=== PATIENT | female | born 2000 | race Caucasian/White ===

== ENCOUNTER 2020-10-07 06:39 | Inpatient (IN) | payer MEDICAID ==
[2020-10-07] MEDS ORDERED: Misoprostol 50 MCG (1/2 of 100 MCG) Tab VAG ONE (08:00)
[2020-10-07] MEDS ORDERED: Sodium Chloride 0.9% 10 ML Syringe FLUSH PRN (08:01)
[2020-10-07] MEDS ORDERED: Ondansetron 4 MG/2 ML SDV IV PRN (08:01)
[2020-10-07] MEDS ORDERED: Lactated Ringers 1,000 ML IV ONE (08:01)
[2020-10-07] MEDS ORDERED: Naloxone 0.4 MG/ML SDV IVPUSH PRN (08:01)
[2020-10-07] MEDS ORDERED: ePHEDrine 50 MG/ML SDV IVPUSH PRN ×2 (08:01)
[2020-10-07] MEDS ORDERED: diphenhydrAMINE 50 MG/ML SDV IVPUSH PRN ×2 (08:01)
[2020-10-07] MEDS ORDERED: Acetaminophen 325 MG Tab PO PRN (08:01)
[2020-10-07] MEDS ORDERED: Ropivacaine 200 MG in Premix Bag 1 BAG EPIDUR SCH (08:15)
--- NOTE | 2020-10-07 08:52 | PCM.LDHP ---
L&D History of Present Illness - General Date of Service: 10/07/20 Admit Problem/Dx: Patient Status Order with Admit Dx/Problem 10/07/20 08:01 Patient Status [ADT] Routine Admission Diagnosis/Problem Admission Diagnosis/Problem - Related Data Allergies/Adverse Reactions: Allergies Allergy/AdvReac Type Severity Reaction Status Date / Time No Known Allergies Allergy Verified 10/07/20 07:59 Home Medications: Home Meds 93/Iron/Folate 9/Dha [[place] Dha Softgel] 1 tab PO DAILY 07/23/20 [History] Heparin Sodium 10,000 units SUBCUT BID 09/25/20 [History] Past Medical History HEENT History: Reports: None [employer]CH[employer]IST History: Reports: Hematologic History: Reports: Other (See Below) Other Hematologic History: protein def, factor V - Infectious Disease History Infectious Disease History: Reports: Chicken Pox, Influenza - Past Surgical History HEENT Surgical History: Reports: Tonsillectomy Social & Family History - Family History Family Medical History: No Pertinent Family History - Tobacco Use Tobacco Use Status *Q: Never Tobacco User Second Hand Smoke Exposure: No - Caffeine Use Caffeine Use: Reports: Coffee - Recreational Drug Use Recreational Drug Use: No H&P Review of Systems - Review of Systems: Review Of Systems: See Below General: Reports: No Symptoms HEENT: Reports: No Symptoms Pulmonary: Reports: No Symptoms Cardiovascular: Reports: No Symptoms Gastrointestinal: Reports: No Symptoms Genitourinary: Reports: No Symptoms Musculoskeletal: Reports: No Symptoms Skin: Reports: No Symptoms Psychiatric: Reports: No Symptoms Neurological: Reports: No Symptoms Hematologic/Lymphatic: Reports: No Symptoms Immunologic: Reports: No Symptoms L&D Exam - Exam Exam: See Below - Vital Signs Vital Signs: Last Vital Signs Temp 36.3 C 10/07/20 08:44 Pulse 105 H 10/07/20 08:44 Resp 16 10/07/20 08:44 BP 123/63 10/07/20 08:44 Pulse Ox 98 10/07/20 08:44 Weight: 63.957 kg - OB Specific Contraction Intensity: Mild Movement: Active Heart Tones: Present Heart Rate (FHR) Variability: Moderate (6-25 bmp) Presentation: Vertex - Olivo Score Olivo Score Cervix Position: Midposition Olivo Score Consistency: Soft Olivo Score Effacement: 51-70% Olivo Score Dilation: 1-2 cm Olivo Score 's Station: -1 ,0 Olivo Score Total: 8 - Exam General: Alert, Oriented, Cooperative HEENT: PERRLA, Conjunctiva Clear, EACs Clear, EOMI, Hearing Intact, Mucosa Moist & [place], Nares Patent, Normal Nasal Septum, Posterior Pharynx Clear, TMs Clear Neck: Supple, Trachea Midline Lungs: Clear to Auscultation, Normal Respiratory Effort Cardiovascular: Regular Rate, Regular Rhythm GI/Abdominal Exam: Normal Bowel Sounds, Soft, Non-Tender, No Organomegaly, No Distention, No Abnormal Bruit, No Mass, Pelvis Stable Rectal Exam: Normal Exam, Normal Rectal Tone Genitourinary: Normal external exam, Normal bimanual exam, Normal speculum exam Back Exam: Normal Inspection, Full Range of Motion Extremities: Normal Inspection, Normal Range of Motion, Non-Tender, No Pedal Edema, Normal Capillary Refill Skin: Warm, Dry, Intact Neurological: Cranial Nerves Intact, Reflexes Equal Bilateral Psychiatric: Alert, Normal Affect, Normal Mood, Anxious - Patient Data Lab Results Last 24 hrs: Laboratory Results - last 24 hr 10/07/20 10/07/20 10/07/20 Range/Units 06:45 06:45 07:02 WBC 8.0 (4.5-11.0) K/uL RBC 4.70 (3.30-5.50) M/uL Hgb 11.2 L (12.0-15.0) g/dL Hct 36.3 (36.0-48.0) % MCV 77 L (80-98) fL MCH 24 L (27-31) pg MCHC 31 L (32-36) % Plt Count 272 (150-400) K/uL Urine Color Yellow (YELLOW) Urine Appearance Clear (CLEAR) Urine pH 7.0 (5.0-8.0) Ur Specific [place] 1.010 (1.008-1.030) Urine Protein Negative (NEGATIVE) mg/dL Urine Glucose (UA) Negative (NEGATIVE) mg/dL Urine Ketones Negative (NEGATIVE) mg/dL Urine Occult Blood Negative (NEGATIVE) Urine Nitrite Negative (NEGATIVE) Urine Bilirubin Negative (NEGATIVE) Urine Urobilinogen 0.2 (0.2-1.0) EU/dL Ur Leukocyte Esterase Negative (NEGATIVE) Urine RBC Not seen (0-5) Urine WBC Not seen (0-5) Ur Epithelial Cells Rare Amorphous Sediment Rare Urine Bacteria Not seen Urine Mucus Not seen Urine Opiates Screen Negative (NEGATIVE) Ur Oxycodone Screen Negative (NEGATIVE) Urine Methadone Screen Negative (NEGATIVE) Ur Propoxyphene Screen Negative (NEGATIVE) Ur Barbiturates Screen Negative (NEGATIVE) Ur Tricyclics Screen Negative (NEGATIVE) Ur Phencyclidine Scrn Negative (NEGATIVE) Ur Amphetamine Screen Negative (NEGATIVE) U Methamphetamines Scrn Negative (NEGATIVE) Urine MDMA Screen Negative (NEGATIVE) U Benzodiazepines Scrn Negative (NEGATIVE) U Cocaine Metab Screen Negative (NEGATIVE) U Marijuana (THC) Screen Negative (NEGATIVE) SARS CoV-2 RNA Rapid EDGARDO 10/07/20 Range/Units 07:22 WBC (4.5-11.0) K/uL RBC (3.30-5.50) M/uL Hgb (12.0-15.0) g/dL Hct (36.0-48.0) % MCV (80-98) fL MCH (27-31) pg MCHC (32-36) % Plt Count (150-400) K/uL Urine Color (YELLOW) Urine Appearance (CLEAR) Urine pH (5.0-8.0) Ur Specific [place] (1.008-1.030) Urine Protein (NEGATIVE) mg/dL Urine Glucose (UA) (NEGATIVE) mg/dL Urine Ketones (NEGATIVE) mg/dL Urine Occult Blood (NEGATIVE) Urine Nitrite (NEGATIVE) Urine Bilirubin (NEGATIVE) Urine Urobilinogen (0.2-1.0) EU/dL Ur Leukocyte Esterase (NEGATIVE) Urine RBC (0-5) Urine WBC (0-5) Ur Epithelial Cells Amorphous Sediment Urine Bacteria Urine Mucus Urine Opiates Screen (NEGATIVE) Ur Oxycodone Screen (NEGATIVE) Urine Methadone Screen (NEGATIVE) Ur Propoxyphene Screen (NEGATIVE) Ur Barbiturates Screen (NEGATIVE) Ur Tricyclics Screen (NEGATIVE) Ur Phencyclidine Scrn (NEGATIVE) Ur Amphetamine Screen (NEGATIVE) U Methamphetamines Scrn (NEGATIVE) Urine MDMA Screen (NEGATIVE) U Benzodiazepines Scrn (NEGATIVE) U Cocaine Metab Screen (NEGATIVE) U Marijuana (THC) Screen (NEGATIVE) SARS CoV-2 RNA Rapid EDGARDO Negative Result Diagrams: 10/07/20 07:02 - Problem List (1) High-risk in third trimester SNOMED Code(s): 07533683, 88323637 ICD Code: O09.93 - SUPERVISION OF HIGH RISK , UNSP, THIRD TRIMESTER Status: Acute Current Visit: Yes (2) Protein S deficiency affecting SNOMED Code(s): 783232042 ICD Code: O99.119 - OTH DIS OF BLD/BLD-FORM ORG/IMMUN MECHNSM COMP PREG,UNSP TRI; D68.59 - OTHER PRIMARY THROMBOPHILIA Status: Acute Current Visit: Yes (3) Factor 5 Leiden mutation, heterozygous SNOMED Code(s): 438736585 ICD Code: D68.51 - ACTIVATED PROTEIN C RESISTANCE Status: Acute Current Visit: Yes (4) Encounter for induction of labor SNOMED Code(s): 999044659 ICD Code: Z34.90 - ENCNTR FOR SUPRVSN OF NORMAL , UNSP, UNSP TRIMESTER Status: Acute Current Visit: Yes Problem List Initiated/Reviewed/Updated: Yes Orders Last 24hrs: Active Orders 24 hr Category Date Time Status Patient Status [ADT] Routine ADT 10/07/20 08:01 Ordered Communication Order [RC] ASDIRECTED Care 10/07/20 08:01 Ordered Communication Order [RC] ASDIRECTED Care 10/07/20 08:01 Ordered Communication Order [RC] ROUTINE Care 10/07/20 08:01 Ordered Communication Order [RC] ROUTINE Care 10/07/20 08:01 Ordered Communication Order [RC] ROUTINE Care 10/07/20 08:01 Ordered Heart Tones [RC] PER UNIT ROUTINE Care 10/07/20 08:01 Ordered Non Stress Test [RC] Click to Edit Care 10/07/20 08:01 Ordered Insert Urinary Catheter [OM.PC] ASDIRECTED Care 10/07/20 08:15 Ordered Local Anesthetic Infusion Pump [RC] ASDIRECTED Care 10/07/20 08:01 Ordered Notify Provider Vital Signs [RC] PRN Care 10/07/20 08:01 Ordered Notify Provider [RC] PRN Care 10/07/20 08:01 Ordered Oxygen Therapy [RC] ASDIRECTED Care 10/07/20 08:01 Ordered PCEA Epidural [RC] ASDIRECTED Care 10/07/20 08:01 Ordered PCEA Epidural [RC] ASDIRECTED Care 10/07/20 08:01 Ordered PCEA Epidural [RC] ASDIRECTED Care 10/07/20 08:02 Ordered Peripheral IV Care [RC] . DIRECTED Care 10/07/20 08:02 Ordered Pulse Oximetry [RC] ASDIRECTED Care 10/07/20 08:01 Ordered Urinary Catheter Assessment [RC] ASDIRECTED Care 10/07/20 08:02 Ordered Vital Signs [RC] PER UNIT ROUTINE Care 10/07/20 08:01 Ordered Vital Signs [RC] PER UNIT ROUTINE Care 10/07/20 08:01 Ordered BPP wo NST [US] Routine Exams 10/07/20 07:07 Ordered TYPE AND SCREEN [BBK] Routine Lab 10/07/20 07:02 Received Acetaminophen [TylenoL] Med 10/07/20 08:01 Ordered 650 mg PO Q4H PRN Lactated Ringers [Ringers, Lactated] 1,000 ml Med 10/07/20 08:01 Ordered IV .BOLUS Naloxone [Narcan] Med 10/07/20 08:01 Ordered 0.1 mg IVPUSH ASDIRECTED PRN Ondansetron [Zofran] Med 10/07/20 08:01 Ordered 4 mg IV Q4H PRN Ropivacaine [Naropin 0.2%] 200 mg Med 10/07/20 08:15 Ordered Premix Bag 1 bag EPIDUR ASDIRECTED Sodium Chloride 0.9% [Saline Flush] Med 10/07/20 08:01 Ordered 10 ml FLUSH ASDIRECTED PRN diphenhydrAMINE [Benadryl] Med 10/07/20 08:01 Ordered 25 mg IVPUSH Q6H PRN diphenhydrAMINE [Benadryl] Med 10/07/20 08:01 Ordered 50 mg IVPUSH Q6H PRN ePHEDrine [ePHEDrine sulfate] Med 10/07/20 08:01 Ordered 10 mg IVPUSH ASDIRECTED PRN ePHEDrine [ePHEDrine sulfate] Med 10/07/20 08:01 Ordered 10 mg IVPUSH ASDIRECTED PRN Epidural Catheter Management [OM.PC] Routine Oth 10/07/20 08:01 Ordered Epidural Catheter Management [OM.PC] Urgent Oth 10/07/20 08:01 Ordered Peripheral IV Insertion Pediatric [OM.PC] Routine Oth 10/07/20 08:01 Ordered Saline Lock Insert [OM.PC] Routine Oth 10/07/20 08:01 Ordered Resuscitation Status Routine Resus Stat 10/07/20 08:01 Ordered Medication Orders Acetaminophen (Tylenol) 650 mg PO Q4H PRN PRN Reason: Pain (Mild 1-3) and fever Diphenhydramine HCl (Benadryl) 25 mg IVPUSH Q6H PRN PRN Reason: Itching Diphenhydramine HCl (Benadryl) 50 mg IVPUSH Q6H PRN PRN Reason: Itching Ephedrine Sulfate (Ephedrine Sulfate) 10 mg IVPUSH ASDIRECTED PRN PRN Reason: Hypotension Ephedrine Sulfate (Ephedrine Sulfate) 10 mg IVPUSH ASDIRECTED PRN PRN Reason: Hypotension Lactated Ringer's (Ringers, Lactated) 1,000 mls @ 999 mls/hr IV .BOLUS ONE Stop: 10/07/20 09:01 Ropivacaine 200 mg/ Premix 100 mls @ 0 mls/hr EPIDUR ASDIRECTED ZAINAB Naloxone HCl (Narcan) 0.1 mg IVPUSH ASDIRECTED PRN PRN Reason: Oversedation Ondansetron HCl (Zofran) 4 mg IV Q4H PRN PRN Reason: Nausea/Vomiting Sodium Chloride (Saline Flush) 10 ml FLUSH ASDIRECTED PRN PRN Reason: Keep Vein Open Assessment/Plan Comment:: 10/07/2020 20 yo here at 39 3/7 weeks gestation for induction of labor. Patient is a high risk due to protein S deficiency and Factor V, has been ma intained with lovenox and then switched to heparin at 36 weeks gestation. BPP 8/8, NST reactive SVE-1-2/70/0 FHTs category one Cytotec placed vaginally Labs-A positive, Hep B neg, Hep C neg, HIV neg, RPR nonreactive, GBS negative, COVID negative, Rubella Immune, Hgb-11.2 Plan- Monitor for active labor Monitor FHTs Patient may be up ad cassandra Patient may tub or shower Place second IV due to bleeding risk Patient may eat regular diet till desires epidural Epidural for pain management Plan and anticipate a vaginal delivery
--- NOTE | 2020-10-07 09:45 | US ---
BPP wo NST INDICATION: induction COMPARISON: None FINDINGS: Single live IUP heart rate: 160 BPM. Biophysical profile score: 8/8. LEIDA: 16.9 cm. IMPRESSION: Normal biophysical profile score of 8/8.
[2020-10-07] MEDS ORDERED: Lactated Ringers 1,000 ML IV SCH (13:15)
--- NOTE | 2020-10-07 13:56 | PCM.PNLD ---
Labor Progress Note - VS & Meds Vital Signs: Last Vital Signs Temp 36.3 C 10/07/20 11:00 Pulse 110 H 10/07/20 11:00 Resp 16 10/07/20 11:00 BP 122/72 10/07/20 11:00 Pulse Ox 98 10/07/20 11:00 Active Medications: Current Medications Acetaminophen (Tylenol) 650 mg PO Q4H PRN PRN Reason: Pain (Mild 1-3) and fever Diphenhydramine HCl (Benadryl) 25 mg IVPUSH Q6H PRN PRN Reason: Itching Diphenhydramine HCl (Benadryl) 50 mg IVPUSH Q6H PRN PRN Reason: Itching Ephedrine Sulfate (Ephedrine Sulfate) 10 mg IVPUSH ASDIRECTED PRN PRN Reason: Hypotension Ephedrine Sulfate (Ephedrine Sulfate) 10 mg IVPUSH ASDIRECTED PRN PRN Reason: Hypotension Ropivacaine 200 mg/ Premix 100 mls @ 0 mls/hr EPIDUR ASDIRECTED ZAINAB Oxytocin/Sodium Chloride (Pitocin In Ns 20 Units/1,000 Ml) 20 unit in 1,000 mls @ 999 mls/hr IV TITRATE ZAINAB; Protocol Lactated Ringer's (Ringers, Lactated) 1,000 mls @ 100 mls/hr IV ASDIRECTED ZAINAB Last Admin: 10/07/20 13:46 Dose: 100 mls/hr Documented by: Naloxone HCl (Narcan) 0.1 mg IVPUSH ASDIRECTED PRN PRN Reason: Oversedation Ondansetron HCl (Zofran) 4 mg IV Q4H PRN PRN Reason: Nausea/Vomiting Sodium Chloride (Saline Flush) 10 ml FLUSH ASDIRECTED PRN PRN Reason: Keep Vein Open Discontinued Medications Lactated Ringer's (Ringers, Lactated) 1,000 mls @ 999 mls/hr IV .BOLUS ONE Stop: 10/07/20 09:01 Last Admin: 10/07/20 13:05 Dose: 999 mls/hr Documented by: Misoprostol (Cytotec) 50 mcg VAG ONETIME ONE Stop: 10/07/20 08:01 Last Admin: 10/07/20 08:40 Dose: 50 mcg Documented by: - Uterine Contractions Uterine Monitoring Mode: External [place] Contraction Frequency (min): 1.5-2 Contraction Duration (sec): 40-110 Contraction Intensity: Mild to Moderate Uterine Resting Tone: Soft - Monitoring Monitor Mode: External Ultrasound Heart Rate (FHR) Variability: Moderate (6-25 bmp) - Vaginal Exam Dilation (cm): 3-4 Effacement (Percent): 85-90 Station: 0 Cervical Position: Anterior Sterile Vaginal Exam Performed By: Maryjane Sawyer - Labor Progress (Free Text) Labor Progress: Patient progressing nicely FHTs category one Contractions regular and slightly uncomfortable Patient does not desire any medication yet SVE-3-4/0 Plan- Continue to monitor labor Continue to monitor FHTs Patient can get in tub per her request Up ad cassandra Epidural when patient desires Plan and anticipate a vaginal delivery
[2020-10-07] MEDS ORDERED: Ropivacaine 100 ML ONE (14:10)
--- NOTE | 2020-10-07 14:14 | PCM.PNLD ---
Labor Progress Note - VS & Meds Vital Signs: Last Vital Signs Temp 36.3 C 10/07/20 11:00 Pulse 110 H 10/07/20 11:00 Resp 16 10/07/20 13:47 BP 122/72 10/07/20 11:00 Pulse Ox 98 10/07/20 11:00 Active Medications: Current Medications Acetaminophen (Tylenol) 650 mg PO Q4H PRN PRN Reason: Pain (Mild 1-3) and fever Diphenhydramine HCl (Benadryl) 25 mg IVPUSH Q6H PRN PRN Reason: Itching Diphenhydramine HCl (Benadryl) 50 mg IVPUSH Q6H PRN PRN Reason: Itching Ephedrine Sulfate (Ephedrine Sulfate) 10 mg IVPUSH ASDIRECTED PRN PRN Reason: Hypotension Ephedrine Sulfate (Ephedrine Sulfate) 10 mg IVPUSH ASDIRECTED PRN PRN Reason: Hypotension Ropivacaine 200 mg/ Premix 100 mls @ 0 mls/hr EPIDUR ASDIRECTED [facility] Last Admin: 10/07/20 14:12 Dose: 12 mls/hr Documented by: Oxytocin/Sodium Chloride (Pitocin In Ns 20 Units/1,000 Ml) 20 unit in 1,000 mls @ 999 mls/hr IV TITRATE [facility]; Protocol Lactated Ringer's (Ringers, Lactated) 1,000 mls @ 100 mls/hr IV ASDIRECTED [facility] Last Admin: 10/07/20 13:46 Dose: 100 mls/hr Documented by: Naloxone HCl (Narcan) 0.1 mg IVPUSH ASDIRECTED PRN PRN Reason: Oversedation Ondansetron HCl (Zofran) 4 mg IV Q4H PRN PRN Reason: Nausea/Vomiting Sodium Chloride (Saline Flush) 10 ml FLUSH ASDIRECTED PRN PRN Reason: Keep Vein Open Discontinued Medications Lactated Ringer's (Ringers, Lactated) 1,000 mls @ 999 mls/hr IV .BOLUS ONE Stop: 10/07/20 09:01 Last Admin: 10/07/20 13:05 Dose: 999 mls/hr Documented by: Ropivacaine (Naropin 0.2%) Confirm Administered Dose 100 mls @ as directed .ROUTE .STK-MED ONE Stop: 10/07/20 14:11 Misoprostol (Cytotec) 50 mcg VAG ONETIME ONE Stop: 10/07/20 08:01 Last Admin: 10/07/20 08:40 Dose: 50 mcg Documented by: - Uterine Contractions Uterine Monitoring Mode: External [place] Contraction Frequency (min): 1.5-2 Contraction Duration (sec): 40-110 Contraction Intensity: Mild to Moderate Uterine Resting Tone: Soft - Monitoring Monitor Mode: External Ultrasound Heart Rate (FHR) Variability: Moderate (6-25 bmp) - Vaginal Exam Dilation (cm): 8 Effacement (Percent): 95 Station: 0 Cervical Position: Anterior Sterile Vaginal Exam Performed By: Maryjane Sawyer - Labor Progress (Free Text) Labor Progress: Patient sitting up after epidural completed, SROM occured. Patient now 8/95/0 and feeling lots of pressure Starting to get comfortable from epidural FHTs category one Contractions regular at bedside and supportive Plan- Continue to monitor labor Continue to monitor FHTs Plan and anticipate a vaginal delivery
[2020-10-07] MEDS ORDERED: Misoprostol 200 MCG Tab ONE (14:38)
[2020-10-07] MEDS ORDERED: Methylergonovine 0.2 MG/1 ML Amp ONE (14:38)
[2020-10-07] MEDS ORDERED: Carboprost Tromethamine 250 MCG/1 ML Amp ONE (14:38)
[2020-10-07] MEDS ORDERED: Witch Hazel Medicated Pads 100/Jar TOP ONE (17:02)
[2020-10-07] MEDS ORDERED: Acetaminophen 325 MG Tab, 50 Tab Bulk Bottle PO PRN (17:02)
[2020-10-07] MEDS ORDERED: Benzocaine 20% Top Spray 56 GM Bottle TOP ONE (17:02)
[2020-10-07] MEDS ORDERED: Lanolin 100% Cream 40 GM Tube TOP ONE (17:02)
--- NOTE | 2020-10-07 17:40 | PCM.DEL ---
L & D Note - General Info Date of Service: 10/07/20 Mother's Due Date: 10/11/20 - Delivery Note Cervical Ripening Method: Misoprostil Delivery Outcome: Livebirth Delivery Method: Spontaneous Vaginal Delivery-Single Delivery Mode: Spontaneous Presentation: Left Occiput Posterior (LOP) Nuchal Cord: Present, Reduced Anesthesia Type: Epidural Amniotic Fluid Description: Clear Episiotomy Type: None Laceration: None Placenta: Intact, Spontaneous Cord: 3 Vessels Estimated Blood Loss: 200 Resuscitation Needed: No : Bulb Syringe, Stimulated, Warmed, Calder Used Score 1 min: 9 Score 5 min: 9 Second Stage Interventions: Reports: Second Nurse Assessed Progress of Descent, Second Nurse Reviewed Contraction Pattern, Second Nurse Reviewed Heart Tones, Encouragement Given, Pushing Effectively Delivery Comments (Free Text/Narrative):: 10/07/2020 20 yo at 39 3/7 weeks gestation delivered a viable female at 1452 on 10/07/2020 normal vaginal delivery in LOP position over an intact perineum. Infant did have a nuchal cord times one that was reduced. Infant was then delivered and placed on prewarmed blanket on mother's abdomen, delayed cord clamping was done for approximately 90 seconds, then cord was double clamped an cut by father of . was crying vigorously, pinking in color. was dried, stimulated, and bulb suctioned while on mother's abdomen. After cord was cut infant was brought more skin to skin with mother. APGARS- 9/9, weight-6lbs 11oz, length-19 inches, Placenta then can slower, but intact. EBL-200ml, Three vessel cord. No lacerations noted of labia, vagina, perineum, rectum or cervix. now skin to skin and both mother and stable in labor and delivery room. Stages of labor- [id number] - General Info Date of Service: 10/07/20 Functional Status: Reports: Pain Controlled - Review of Systems General: Reports: No Symptoms HEENT: Reports: No Symptoms Pulmonary: Reports: No Symptoms Cardiovascular: Reports: No Symptoms Gastrointestinal: Reports: No Symptoms Genitourinary: Reports: No Symptoms Musculoskeletal: Reports: No Symptoms Skin: Reports: No Symptoms Neurological: Reports: No Symptoms Psychiatric: Reports: No Symptoms - Patient Data Vitals - Most Recent: Last Vital Signs Temp 36.3 C 10/07/20 16:15 Pulse 83 10/07/20 15:00 Resp 18 10/07/20 16:15 BP 112/81 10/07/20 16:15 Pulse Ox 100 10/07/20 16:15 Weight - Most Recent: 63.957 kg I&O - Last 24 Hours: Intake & Output 10/07/20 10/07/20 10/07/20 06:59 14:59 22:59 Intake Total 1000 Balance 1000 Lab Results Last 24 Hours: Laboratory Results - last 24 hr 10/07/20 10/07/20 10/07/20 Range/Units 06:45 06:45 07:02 WBC 8.0 (4.5-11.0) K/uL RBC 4.70 (3.30-5.50) M/uL Hgb 11.2 L (12.0-15.0) g/dL Hct 36.3 (36.0-48.0) % MCV 77 L (80-98) fL MCH 24 L (27-31) pg MCHC 31 L (32-36) % Plt Count 272 (150-400) K/uL Urine Color Yellow (YELLOW) Urine Appearance Clear (CLEAR) Urine pH 7.0 (5.0-8.0) Ur Specific Dilliner 1.010 (1.008-1.030) Urine Protein Negative (NEGATIVE) mg/dL Urine Glucose (UA) Negative (NEGATIVE) mg/dL Urine Ketones Negative (NEGATIVE) mg/dL Urine Occult Blood Negative (NEGATIVE) Urine Nitrite Negative (NEGATIVE) Urine Bilirubin Negative (NEGATIVE) Urine Urobilinogen 0.2 (0.2-1.0) EU/dL Ur Leukocyte Esterase Negative (NEGATIVE) Urine RBC Not seen (0-5) Urine WBC Not seen (0-5) Ur Epithelial Cells Rare Amorphous Sediment Rare Urine Bacteria Not seen Urine Mucus Not seen Urine Opiates Screen Negative (NEGATIVE) Ur Oxycodone Screen Negative (NEGATIVE) Urine Methadone Screen Negative (NEGATIVE) Ur Propoxyphene Screen Negative (NEGATIVE) Ur Barbiturates Screen Negative (NEGATIVE) Ur Tricyclics Screen Negative (NEGATIVE) Ur Phencyclidine Scrn Negative (NEGATIVE) Ur Amphetamine Screen Negative (NEGATIVE) U Methamphetamines Scrn Negative (NEGATIVE) Urine MDMA Screen Negative (NEGATIVE) U Benzodiazepines Scrn Negative (NEGATIVE) U Cocaine Metab Screen Negative (NEGATIVE) U Marijuana (THC) Screen Negative (NEGATIVE) SARS CoV-2 RNA Rapid EDGARDO Blood Type Gel Antibody Screen 10/07/20 10/07/20 Range/Units 07:02 07:22 WBC (4.5-11.0) K/uL RBC (3.30-5.50) M/uL Hgb (12.0-15.0) g/dL Hct (36.0-48.0) % MCV (80-98) fL MCH (27-31) pg MCHC (32-36) % Plt Count (150-400) K/uL Urine Color (YELLOW) Urine Appearance (CLEAR) Urine pH (5.0-8.0) Ur Specific Dilliner (1.008-1.030) Urine Protein (NEGATIVE) mg/dL Urine Glucose (UA) (NEGATIVE) mg/dL Urine Ketones (NEGATIVE) mg/dL Urine Occult Blood (NEGATIVE) Urine Nitrite (NEGATIVE) Urine Bilirubin (NEGATIVE) Urine Urobilinogen (0.2-1.0) EU/dL Ur Leukocyte Esterase (NEGATIVE) Urine RBC (0-5) Urine WBC (0-5) Ur Epithelial Cells Amorphous Sediment Urine Bacteria Urine Mucus Urine Opiates Screen (NEGATIVE) Ur Oxycodone Screen (NEGATIVE) Urine Methadone Screen (NEGATIVE) Ur Propoxyphene Screen (NEGATIVE) Ur Barbiturates Screen (NEGATIVE) Ur Tricyclics Screen (NEGATIVE) Ur Phencyclidine Scrn (NEGATIVE) Ur Amphetamine Screen (NEGATIVE) U Methamphetamines Scrn (NEGATIVE) Urine MDMA Screen (NEGATIVE) U Benzodiazepines Scrn (NEGATIVE) U Cocaine Metab Screen (NEGATIVE) U Marijuana (THC) Screen (NEGATIVE) SARS CoV-2 RNA Rapid EDGARDO Negative Blood Type A POSITIVE Gel Antibody Screen Negative Med Orders - Current: Current Medications Acetaminophen (Tylenol) 650 mg PO Q4H PRN PRN Reason: Pain (Mild 1-3) and fever Acetaminophen (Tylenol Bulk Bottle) 325 - 650 mg PO Q4H PRN PRN Reason: Pain Acetaminophen/Codeine Phosphate (Tylenol With Codeine No.3 300mg/30mg) 1 tab PO Q4H PRN PRN Reason: Pain Diphenhydramine HCl (Benadryl) 25 mg IVPUSH Q6H PRN PRN Reason: Itching Diphenhydramine HCl (Benadryl) 50 mg IVPUSH Q6H PRN PRN Reason: Itching Enoxaparin Sodium (Lovenox) 40 mg SUBCUT DAILY [facility] Ephedrine Sulfate (Ephedrine Sulfate) 10 mg IVPUSH ASDIRECTED PRN PRN Reason: Hypotension Last Admin: 10/07/20 14:16 Dose: 10 mg Documented by: Ephedrine Sulfate (Ephedrine Sulfate) 10 mg IVPUSH ASDIRECTED PRN PRN Reason: Hypotension Ropivacaine 200 mg/ Premix 100 mls @ 0 mls/hr EPIDUR ASDIRECTED [facility] Last Admin: 10/07/20 14:12 Dose: 12 mls/hr Documented by: Oxytocin/Sodium Chloride (Pitocin In Ns 20 Units/1,000 Ml) 20 unit in 1,000 mls @ 999 mls/hr IV TITRATE [facility]; Protocol Lactated Ringer's (Ringers, Lactated) 1,000 mls @ 100 mls/hr IV ASDIRECTED [facility] Last Admin: 10/07/20 13:46 Dose: 100 mls/hr Documented by: Naloxone HCl (Narcan) 0.1 mg IVPUSH ASDIRECTED PRN PRN Reason: Oversedation Ondansetron HCl (Zofran) 4 mg IV Q4H PRN PRN Reason: Nausea/Vomiting Sertraline HCl (Zoloft) 50 mg PO BEDTIME [facility] Sodium Chloride (Saline Flush) 10 ml FLUSH ASDIRECTED PRN PRN Reason: Keep Vein Open Discontinued Medications Benzocaine (Tvcs-L-Puezvak 20% Dante) 0 gm TOP ONETIME ONE Stop: 10/07/20 17:03 Last Admin: 10/07/20 17:21 Dose: 1 applic Documented by: Carboprost Tromethamine (Hemabate Ds) Confirm Administered Dose 250 mcg .ROUTE .STK-MED ONE Stop: 10/07/20 14:39 Last Admin: 10/07/20 17:18 Dose: Not Given Documented by: Emollient Ointment (Lansinoh Hpa) 1 gm TOP ONETIME ONE Stop: 10/07/20 17:03 Last Admin: 10/07/20 17:22 Dose: 1 applic Documented by: Lactated Ringer's (Ringers, Lactated) 1,000 mls @ 999 mls/hr IV .BOLUS ONE Stop: 10/07/20 09:01 Last Admin: 10/07/20 13:05 Dose: 999 mls/hr Documented by: Ropivacaine (Naropin 0.2%) Confirm Administered Dose 100 mls @ as directed .ROUTE .STK-MED ONE Stop: 10/07/20 14:11 Methylergonovine Maleate (Methergine) Confirm Administered Dose 0.2 mg .ROUTE .STK-MED ONE Stop: 10/07/20 14:39 Last Admin: 10/07/20 17:19 Dose: Not Given Documented by: Misoprostol (Cytotec) 50 mcg VAG ONETIME ONE Stop: 10/07/20 08:01 Last Admin: 10/07/20 08:40 Dose: 50 mcg Documented by: Misoprostol (Cytotec) Confirm Administered Dose 800 mcg .ROUTE .STK-MED ONE Stop: 10/07/20 14:39 Last Admin: 10/07/20 17:18 Dose: Not Given Documented by: Jasmeet Penn ([facility]) 1 pad TOP ONETIME ONE Stop: 10/07/20 17:03 Last Admin: 10/07/20 17:21 Dose: 1 pad Documented by: - Exam General: Alert, Oriented, Cooperative HEENT: Pupils Equal, Pupils Reactive, EOMI, Mucous Membr. Moist/Friend Neck: Supple Lungs: Clear to Auscultation, Normal Respiratory Effort Cardiovascular: Regular Rate, Regular Rhythm GI/Abdominal Exam: Normal Bowel Sounds, Soft, Non-Tender, No Organomegaly, No Distention, No Abnormal Bruit, No Mass, Pelvis Stable (Female) Exam: Normal External Exam, Normal Speculum Exam, Normal Bimanual Exam, Enlarged Uterus, Vaginal Bleeding Back Exam: Normal Inspection, Full Range of Motion Extremities: Normal Inspection, Normal Range of Motion, Non-Tender, No Pedal Edema, Normal Capillary Refill Skin: Warm, Dry, Intact Neurological: No New Focal Deficit Psy/Mental Status: Alert, Normal Affect, Normal Mood - Problem List & Annotations (1) High-risk in third trimester SNOMED Code(s): 32621872, 77602666 Code(s): O09.93 - SUPERVISION OF HIGH RISK , UNSP, THIRD TRIMESTER Status: Acute Current Visit: Yes (2) Protein S deficiency affecting SNOMED Code(s): 415113938 Code(s): O99.119 - OTH DIS OF BLD/BLD-FORM ORG/IMMUN MECHNSM COMP PREG,UNSP TRI; D68.59 - OTHER PRIMARY THROMBOPHILIA Status: Acute Current Visit: Yes (3) Factor 5 Leiden mutation, heterozygous SNOMED Code(s): 210277749 Code(s): D68.51 - ACTIVATED PROTEIN C RESISTANCE Status: Acute Current Visit: Yes (4) Encounter for induction of labor SNOMED Code(s): 889893345 Code(s): Z34.90 - ENCNTR FOR SUPRVSN OF NORMAL , UNSP, UNSP TRIMESTER Status: Acute Current Visit: Yes (5) Vaginal delivery SNOMED Code(s): 644158184 Code(s): O80 - ENCOUNTER FOR FULL-TERM UNCOMPLICATED DELIVERY Status: Acute Current Visit: Yes (6) (infant) SNOMED Code(s): 847095272 Code(s): Z78.9 - OTHER SPECIFIED HEALTH STATUS Status: Acute Current Visit: Yes (7) On anticoagulant therapy SNOMED Code(s): 438134958, 505538843 Code(s): Z79.01 - 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 OF ANTICOAGULANTS Status: Acute Current Visit: Yes - Problem List Review Problem List Initiated/Reviewed/Updated: Yes - My Orders Last 24 Hours: My Active Orders 10/07/20 07:02 PATIENT RETYPE [BBK] Routine TYPE AND SCREEN [BBK] Routine 10/07/20 08:01 Patient Status [ADT] Routine Communication Order [RC] ASDIRECTED Communication Order [RC] ASDIRECTED Communication Order [RC] ROUTINE Communication Order [RC] ROUTINE Communication Order [RC] ROUTINE Heart Tones [RC] PER UNIT ROUTINE Local Anesthetic Infusion Pump [RC] ASDIRECTED Notify Provider Vital Signs [RC] PRN Notify Provider [RC] PRN Oxygen Therapy [RC] ASDIRECTED PCEA Epidural [RC] ASDIRECTED Pulse Oximetry [RC] ASDIRECTED Vital Signs [RC] PER UNIT ROUTINE Acetaminophen [TylenoL] 650 mg PO Q4H PRN Naloxone [Narcan] 0.1 mg IVPUSH ASDIRECTED PRN Ondansetron [Zofran] 4 mg IV Q4H PRN Sodium Chloride 0.9% [Saline Flush] 10 ml FLUSH ASDIRECTED PRN diphenhydrAMINE [Benadryl] 25 mg IVPUSH Q6H PRN diphenhydrAMINE [Benadryl] 50 mg IVPUSH Q6H PRN ePHEDrine [ePHEDrine sulfate] 10 mg IVPUSH ASDIRECTED PRN ePHEDrine [ePHEDrine sulfate] 10 mg IVPUSH ASDIRECTED PRN Epidural Catheter Management [OM.PC] Routine Epidural Catheter Management [OM.PC] Urgent Peripheral IV Insertion Pediatric [OM.PC] Routine Saline Lock Insert [OM.PC] Routine Resuscitation Status Routine 10/07/20 08:02 PCEA Epidural [RC] ASDIRECTED Peripheral IV Care [RC] . DIRECTED Urinary Catheter Assessment [RC] ASDIRECTED 10/07/20 08:15 Insert Urinary Catheter [OM.PC] ASDIRECTED Ropivacaine [Naropin 0.2%] 200 mg Premix Bag 1 bag EPIDUR ASDIRECTED 10/07/20 Lunch Regular Diet [DIET] 10/07/20 12:45 Oxytocin/Normal Saline [Pitocin in NS 20 Units/1,000 ML] 20 unit in 1,000 ml IV TITRATE 10/07/20 13:15 Lactated Ringers [Ringers, Lactated] 1,000 ml IV ASDIRECTED 10/07/20 17:02 Ambulate [RC] PER UNIT ROUTINE Communication Order [RC] ROUTINE Acetaminophen [Tylenol Bulk Bottle] 325 - 650 mg PO Q4H PRN Assess Lochia [WOMSER] Per Unit Routine Assess Uterine Involution [WOMSER] Per Unit Routine DVT/VTE Prophylaxis Reflex [OM.PC] Routine 10/07/20 17:07 Patient Status [ADT] Routine Vital Signs [RC] PFP Perineal Care [OM.PC] Per Unit Routine 10/07/20 17:08 VTE/DVT Education [RC] Click to Edit 10/07/20 17:25 Acetaminophen/Codeine [Tylenol with Codeine No.3 300MG/30MG] 1 tab PO Q4H PRN 10/07/20 21:00 Sertraline [Zoloft] 50 mg PO BEDTIME 10/08/20 06:00 CBC WITH AUTO DIFF [HEME] Routine 10/08/20 09:00 Enoxaparin [Lovenox] 40 mg SUBCUT DAILY - Assessment Assessment:: 10/07/2020 20 yo G2 now P2 without complications 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 Patient is a high risk due to protein S deficiency and Factor V, has been maintained with lovenox and then switched to heparin at 36 weeks gestation. BPP 8/8, NST reactive SVE-1-2/70/0 FHTs category one Cytotec placed vaginally Labs-A positive, Hep B neg, Hep C neg, HIV neg, RPR nonreactive, GBS negative, COVID negative, Rubella Immune, Hgb-11.2 Plan- Monitor for active labor Monitor FHTs Patient may be up ad cassandra Patient may tub or shower Place second IV due to bleeding risk Patient may eat regular diet till desires epidural Epidural for pain management Plan and anticipate a vaginal delivery Routine cares Encourage and support To restart lovenox tomorrow for six weeks To restart Zoloft at bedtime Patient desires a 24 hour discharge if stable
--- NOTE | 2020-10-07 19:25 | ANES ---
DATE OF SERVICE: 10/07/2020 INDICATIONS: Pham is a 20-year-old female patient who is requesting a labor epidural this afternoon. She came in for labor induction today, and at the bedside at approximately 1345, history and physical was done with the patient. The patient is on blood thinners for blood clotting disorder that she had been taking heparin for, but her last dose of heparin was at 5 o'clock yesterday afternoon, so no worries there. No allergies that she was aware of. Platelet count was above 200. Other than the clotting disorder, she has normal and normal health. Did have a labor epidural with her first one also. Risks and benefits, including spinal headache, risk for infection were reviewed with the patient. The patient verbalizes understanding and wishes to proceed with the labor epidural at this time. TECHNIQUE: The patient was sat at the edge of the bed. Betadine prep x3 to the lumbar region was done. Sterile drape was placed. 1% lidocaine skin wheal and deep was done. A 17-gauge Tuohy needle was inserted at approximately the L3-4 position. Loss of resistance was easily achieved. Negative paresthesia, negative heme, negative CSF were noted. Loss of resistance was approximately at 5 cm. Catheter was then placed through the Tuohy needle without difficulty. The Tuohy needle was taken out and catheter was pulled back to approximately 13 cm at the skin. Catheter was then secured at that time. I then proceeded to give the patient 5 mL test dose and patient was then laid in supine position with head of bed slightly elevated and left uterine displacement done. After several minutes, the patient showed no signs of local anesthetic toxicity or intravascular injection of local, so I then proceeded to give the patient 12 mL of 0.2% ropivacaine bolus via the epidural and started her on a 0.2% ropivacaine drip at 12 mL an hour. The patient tolerated the bolus without difficulty. Please refer to the nurse's notes for vital signs. Prior to leaving, the patient was stating that she was feeling some relief with each contraction and was able to talk through contractions. We will be available as needed for the patient. Yong Friedman CRNA /[id number]
[2020-10-07] MEDS ORDERED: Sertraline 50 MG Tab PO SCH (21:00)
[2020-10-08] MEDS: Acetaminophen/Codeine 300-30 MG Tab PO PRN ×3 (02:07→12:00)
--- NOTE | 2020-10-08 08:18 | PCM.PNPP ---
- General Info Date of Service: 10/08/20 Functional Status: Reports: Pain Controlled - Review of Systems General: Reports: No Symptoms HEENT: Reports: No Symptoms Pulmonary: Reports: No Symptoms Cardiovascular: Reports: No Symptoms Gastrointestinal: Reports: No Symptoms Genitourinary: Reports: No Symptoms Musculoskeletal: Reports: No Symptoms Skin: Reports: No Symptoms Neurological: Reports: No Symptoms Psychiatric: Reports: No Symptoms - General Info Date of Service: 10/08/20 - Patient Data Vital Signs - Most Recent: Last Vital Signs Temp 36.8 C 10/08/20 04:30 Pulse 55 L 10/08/20 04:30 Resp 18 10/08/20 04:30 BP 112/62 10/08/20 04:30 Pulse Ox 99 10/08/20 04:30 Weight - Most Recent: 63.957 kg Lab Results - Last 24 Hours: Laboratory Results - last 24 hr 10/07/20 10/08/20 Range/Units 07:02 05:30 WBC 11.1 H (4.5-11.0) K/uL RBC 4.76 (3.30-5.50) M/uL Hgb 11.6 L (12.0-15.0) g/dL Hct 36.3 (36.0-48.0) % MCV 76 L (80-98) fL MCH 24 L (27-31) pg MCHC 32 (32-36) % Plt Count 257 (150-400) K/uL Neut % (Auto) 77 H (36-66) % Lymph % (Auto) 16 L (24-44) % [place] % (Auto) 6 (2-6) % Eos % (Auto) 1 L (2-4) % Baso % (Auto) 0 (0-1) % Blood Type A POSITIVE Gel Antibody Screen Negative Med Orders - Current: Current Medications Acetaminophen (Tylenol) 650 mg PO Q4H PRN PRN Reason: Pain (Mild 1-3) and fever Acetaminophen (Tylenol Bulk Bottle) 325 - 650 mg PO Q4H PRN PRN Reason: Pain Last Admin: 10/07/20 17:43 Dose: 650 mg Documented by: Acetaminophen/Codeine Phosphate (Tylenol With Codeine No.3 300mg/30mg) 1 tab PO Q4H PRN PRN Reason: Pain Last Admin: 10/08/20 06:12 Dose: 1 tab Documented by: Diphenhydramine HCl (Benadryl) 25 mg IVPUSH Q6H PRN PRN Reason: Itching Diphenhydramine HCl (Benadryl) 50 mg IVPUSH Q6H PRN PRN Reason: Itching Enoxaparin Sodium (Lovenox) 40 mg SUBCUT DAILY [facility] Ephedrine Sulfate (Ephedrine Sulfate) 10 mg IVPUSH ASDIRECTED PRN PRN Reason: Hypotension Last Admin: 10/07/20 14:16 Dose: 10 mg Documented by: Ephedrine Sulfate (Ephedrine Sulfate) 10 mg IVPUSH ASDIRECTED PRN PRN Reason: Hypotension Ropivacaine 200 mg/ Premix 100 mls @ 0 mls/hr EPIDUR ASDIRECTED [facility] Last Admin: 10/07/20 14:12 Dose: 12 mls/hr Documented by: Oxytocin/Sodium Chloride (Pitocin In Ns 20 Units/1,000 Ml) 20 unit in 1,000 mls @ 999 mls/hr IV TITRATE [facility]; Protocol Lactated Ringer's (Ringers, Lactated) 1,000 mls @ 100 mls/hr IV ASDIRECTED [facility] Last Admin: 10/07/20 13:46 Dose: 100 mls/hr Documented by: Naloxone HCl (Narcan) 0.1 mg IVPUSH ASDIRECTED PRN PRN Reason: Oversedation Ondansetron HCl (Zofran) 4 mg IV Q4H PRN PRN Reason: Nausea/Vomiting Sertraline HCl (Zoloft) 50 mg PO BEDTIME [facility] Last Admin: 10/07/20 20:47 Dose: 50 mg Documented by: Sodium Chloride (Saline Flush) 10 ml FLUSH ASDIRECTED PRN PRN Reason: Keep Vein Open Discontinued Medications Benzocaine (Nntt-Q-Rtusxma 20% [place]) 0 gm TOP ONETIME ONE Stop: 10/07/20 17:03 Last Admin: 10/07/20 17:21 Dose: 1 applic Documented by: Carboprost Tromethamine (Hemabate Ds) Confirm Administered Dose 250 mcg .ROUTE .STK-MED ONE Stop: 10/07/20 14:39 Last Admin: 10/07/20 17:18 Dose: Not Given Documented by: Emollient Ointment (Lansinoh Hpa) 1 gm TOP ONETIME ONE Stop: 10/07/20 17:03 Last Admin: 10/07/20 17:22 Dose: 1 applic Documented by: Lactated Ringer's (Ringers, Lactated) 1,000 mls @ 999 mls/hr IV .BOLUS ONE Stop: 10/07/20 09:01 Last Admin: 10/07/20 13:05 Dose: 999 mls/hr Documented by: Ropivacaine (Naropin 0.2%) Confirm Administered Dose 100 mls @ as directed .ROUTE .STK-MED ONE Stop: 10/07/20 14:11 Methylergonovine Maleate (Methergine) Confirm Administered Dose 0.2 mg .ROUTE .STK-MED ONE Stop: 10/07/20 14:39 Last Admin: 10/07/20 17:19 Dose: Not Given Documented by: Misoprostol (Cytotec) 50 mcg VAG ONETIME ONE Stop: 10/07/20 08:01 Last Admin: 10/07/20 08:40 Dose: 50 mcg Documented by: Misoprostol (Cytotec) Confirm Administered Dose 800 mcg .ROUTE .STK-MED ONE Stop: 10/07/20 14:39 Last Admin: 10/07/20 17:18 Dose: Not Given Documented by: Jasmeet Penn ([facility]) 1 pad TOP ONETIME ONE Stop: 10/07/20 17:03 Last Admin: 10/07/20 17:21 Dose: 1 pad Documented by: - Interaction Infant Disposition, : [place] in Room with Family Interaction: Holding Infant Feeding: Breastfed ; Nursed Well Support Person: Significant Other - Recovery Exam Fundal Tone: Firm Fundal Level: 1 Fingerbreadths Below Umbilicus Fundal Placement: Midline Lochia Amount: Small Lochia Color: Rubra/Red Perineum Description: Intact, Minimal Bruising/Swelling Episiotomy/Laceration: None Bladder Status: Voiding Urinary Elimination: Voided - Exam General: Alert, Oriented, Cooperative HEENT: Pupils Equal, Pupils Reactive, EOMI, Mucous Membr. Moist/[place] Neck: Supple Lungs: Clear to Auscultation, Normal Respiratory Effort Cardiovascular: Regular Rate, Regular Rhythm GI/Abdominal Exam: Normal Bowel Sounds, Soft, Non-Tender, No Organomegaly, No Distention, No Abnormal Bruit, No Mass, Pelvis Stable Extremities: Normal Inspection, Normal Range of Motion, Non-Tender, No Pedal Edema, Normal Capillary Refill Skin: Warm, Dry, Intact Neurological: No New Focal Deficit Psy/Mental Status: Alert, Normal Affect, Normal Mood - Problem List & Annotations (1) High-risk in third trimester SNOMED Code(s): 36362143, 56330017 Code(s): O09.93 - SUPERVISION OF HIGH RISK , UNSP, THIRD TRIMESTER Status: Acute Current Visit: Yes (2) Protein S deficiency affecting SNOMED Code(s): 640554961 Code(s): O99.119 - OTH DIS OF BLD/BLD-FORM ORG/IMMUN MECHNSM COMP PREG,UNSP TRI; D68.59 - OTHER PRIMARY THROMBOPHILIA Status: Acute Current Visit: Yes (3) Factor 5 Leiden mutation, heterozygous SNOMED Code(s): 370481340 Code(s): D68.51 - ACTIVATED PROTEIN C RESISTANCE Status: Acute Current Visit: Yes (4) Encounter for induction of labor SNOMED Code(s): 217452008 Code(s): Z34.90 - ENCNTR FOR SUPRVSN OF NORMAL , UNSP, UNSP TRIMESTER Status: Acute Current Visit: Yes (5) Vaginal delivery SNOMED Code(s): 178004007 Code(s): O80 - ENCOUNTER FOR FULL-TERM UNCOMPLICATED DELIVERY Status: Acute Current Visit: Yes (6) (infant) SNOMED Code(s): 940324208 Code(s): Z78.9 - OTHER SPECIFIED HEALTH STATUS Status: Acute Current Visit: Yes (7) On anticoagulant therapy SNOMED Code(s): 957204620, 738430249 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(s): 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 Status: Acute Current Visit: Yes - Problem List Review Problem List Initiated/Reviewed/Updated: Yes - My Orders Last 24 Hours: My Active Orders 10/07/20 08:01 Patient Status [ADT] Routine Communication Order [RC] ASDIRECTED Communication Order [RC] ASDIRECTED Communication Order [RC] ROUTINE Communication Order [RC] ROUTINE Communication Order [RC] ROUTINE Heart Tones [RC] PER UNIT ROUTINE Local Anesthetic Infusion Pump [RC] ASDIRECTED Notify Provider Vital Signs [RC] PRN Notify Provider [RC] PRN PCEA Epidural [RC] ASDIRECTED Pulse Oximetry [RC] ASDIRECTED Vital Signs [RC] PER UNIT ROUTINE Acetaminophen [TylenoL] 650 mg PO Q4H PRN Naloxone [Narcan] 0.1 mg IVPUSH ASDIRECTED PRN Ondansetron [Zofran] 4 mg IV Q4H PRN Sodium Chloride 0.9% [Saline Flush] 10 ml FLUSH ASDIRECTED PRN diphenhydrAMINE [Benadryl] 25 mg IVPUSH Q6H PRN diphenhydrAMINE [Benadryl] 50 mg IVPUSH Q6H PRN ePHEDrine [ePHEDrine sulfate] 10 mg IVPUSH ASDIRECTED PRN ePHEDrine [ePHEDrine sulfate] 10 mg IVPUSH ASDIRECTED PRN Epidural Catheter Management [OM.PC] Routine Epidural Catheter Management [OM.PC] Urgent Peripheral IV Insertion Pediatric [OM.PC] Routine Saline Lock Insert [OM.PC] Routine Resuscitation Status Routine 10/07/20 08:02 PCEA Epidural [RC] ASDIRECTED Peripheral IV Care [RC] . DIRECTED 10/07/20 08:15 Insert Urinary Catheter [OM.PC] ASDIRECTED Ropivacaine [Naropin 0.2%] 200 mg Premix Bag 1 bag EPIDUR ASDIRECTED 10/07/20 Lunch Regular Diet [DIET] 10/07/20 12:45 Oxytocin/Normal Saline [Pitocin in NS 20 Units/1,000 ML] 20 unit in 1,000 ml IV TITRATE 10/07/20 13:15 Lactated Ringers [Ringers, Lactated] 1,000 ml IV ASDIRECTED 10/07/20 17:02 Ambulate [RC] PER UNIT ROUTINE Acetaminophen [Tylenol Bulk Bottle] 325 - 650 mg PO Q4H PRN Assess Lochia [WOMSER] Per Unit Routine Assess Uterine Involution [WOMSER] Per Unit Routine DVT/VTE Prophylaxis Reflex [OM.PC] Routine 10/07/20 17:07 Patient Status [ADT] Routine Perineal Care [OM.PC] Per Unit Routine 10/07/20 17:08 VTE/DVT Education [RC] Click to Edit 10/07/20 17:25 Acetaminophen/Codeine [Tylenol with Codeine No.3 300MG/30MG] 1 tab PO Q4H PRN 10/07/20 21:00 Sertraline [Zoloft] 50 mg PO BEDTIME 10/08/20 09:00 Enoxaparin [Lovenox] 40 mg SUBCUT DAILY - Assessment Assessment:: 10/07/2020 20 yo G2 now P2 without complications 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 Patient is a high risk due to protein S deficiency and Factor V, has been maintained with lovenox and then switched to heparin at 36 weeks gestation. BPP 8/8, NST reactive SVE-1-2/70/0 FHTs category one Cytotec placed vaginally Labs-A positive, Hep B neg, Hep C neg, HIV neg, RPR nonreactive, GBS negative, COVID negative, Rubella Immune, Hgb-11.2 Plan- Monitor for active labor Monitor FHTs Patient may be up ad cassandra Patient may tub or shower Place second IV due to bleeding risk Patient may eat regular diet till desires epidural Epidural for pain management Plan and anticipate a vaginal delivery Routine cares Encourage and support To restart lovenox tomorrow for six weeks To restart Zoloft at bedtime Patient desires a 24 hour discharge if stable Routine cares Encourage and support To restart lovenox today but would like to at night at home to do this for six weeks To restart Zoloft at bedtime Patient desires a 24 hour Patient to see provider in clinic in six weeks for care
[2020-10-08] MEDS ORDERED: Enoxaparin 40 MG/0.4 ML Syringe SUBCUT SCH (09:00)
== END 2020-10-08 15:48 | disposition home or self-care (01) | DRG 806 ==
LOC: JP.OB 06:39 → OBSVTOIN 14:52 → JP.MS 10-08 00:15
PROVIDERS: ADMIT Advanced Practice Midwife; ATTEND Advanced Practice Midwife
PROC: 10E0XZZ Delivery of Products of Conception, External Approach (ICD-10-PCS; principal; 2020-10-07)
PROC: 3E0P7VZ Introduction of Hormone into Female Reproductive, Via Natural or Artificial Opening (ICD-10-PCS; 2020-10-07)
PROC: 3E0R3BZ Introduction of Anesthetic Agent into Spinal Canal, Percutaneous Approach (ICD-10-PCS; 2020-10-07)
PROC: 00HU33Z Insertion of Infusion Device into Spinal Canal, Percutaneous Approach (ICD-10-PCS; 2020-10-07)
DX: O99.12 Other diseases of the blood and blood-forming organs and certain disorders involving the immune mechanism complicating childbirth (principal); D68.59 Other primary thrombophilia; Z37.0 Single live birth; D68.51 Activated protein C resistance; Z3A.39 39 weeks gestation of pregnancy; O69.81X0 Labor and delivery complicated by cord around neck, without compression, not applicable or unspecified; Z20.822 Contact with and (suspected) exposure to COVID-19
CPT/HCPCS: 36415; 59409; 76819; 76819-26; 80305-QW; 81001; 85025; 85027; 86850; 86900; 86901; A9270-GY; J2795; J7120; U0002